=== PATIENT | female | born 1965 | race African-American/Black ===

== ENCOUNTER 2021-04-18 13:15 | Emergency (ER) | payer BC ==
[2021-04-18 13:51] VITALS: TEMP 99; BMI 42.3
[2021-04-18 14:57] LABS: BASO % 0.7 % (0-2.0); EOS % 0.2 % (0-4.5); HEMATOCRIT 37.6 % (32.4-45.2); HEMOGLOBIN 12.1 GM/dl (10.7-15.3); LYMPH % 6.7 % (8-40); MCH 26.4 pg (25.7-33.7); MCHC 32.2 g/dl (32.0-36.0); MEAN CELL VOLUME 81.8 fl (80-96); MEAN PLT VOLUME 7.9 fl (7.5-11.1); MONO % 6.6 % (3.8-10.2); NEUT % 85.8 % (42.8-82.8); PLATELET COUNT 241 10^3/uL (134-434); RDW 15.9 % (11.6-15.6); WHITE BLOOD COUNT 4.7 K/mm3 (4.0-10.8)
[2021-04-18 15:06] LABS: ALBUMIN 3.8 g/dl (3.4-5.0); BILIRUBIN,TOTAL 0.5 mg/dl (0.2-1); CALCIUM 8.9 mg/dl (8.5-10); TOT PROT 6.7 g/dl (6.4-8.2)
[2021-04-18 15:32] LABS: EPITHELIAL CELLS RARE /hpf
[2021-04-18] MEDS ORDERED: ACETAMINOPHEN 1000 MG/100 ML VIAL (NON FORMULARY) IVPB ONE (15:54)
[2021-04-18] MEDS ORDERED: SODIUM CHLORIDE 500 ML IV STA (15:55)
[2021-04-18] MEDS ORDERED: ACETAMINOPHEN INJECTION 100 ML IVPB ONE (16:12)
[2021-04-18 16:58] VITALS: BP 130/98; PULSE 105
== END 2021-04-18 17:58 | disposition home or self-care (01) ==
LOC: FER 13:15
PROC: 3E033GC Introduction of Other Therapeutic Substance into Peripheral Vein, Percutaneous Approach (ICD-10-PCS; principal; 2021-04-18)
DX: J06.9 Acute upper respiratory infection, unspecified (principal)
CPT/HCPCS: 36415; 71045-TC-FY; 80053; 81003; 81015; 85025; 87040; 87086; 99284-25; C9803; J0131; U0003; U0005